=== PATIENT | female | born 1960 | race Caucasian/White ===

== ENCOUNTER 2019-12-28 14:46 | Outpatient (CLI) | payer OTHER, SELFPAY ==
--- NOTE | 2019-12-28 14:56 | XR_ITS ---
WS: [id number] CERVICAL SPINE TECHNIQUE: 3 views of the cervical spine CLINICAL INFORMATION: CERVICALGIA COMPARISON: None. FINDINGS: Mild cervical curve convex left. Straightening of the normal cervical lordosis. Mild spondylitic dodson ges. Disc space narrowing worse at C5-C6 and C6-C7. Normal dens. Normal prevertebral soft tissues. XR/XR cervical spine 3V* [id number] IMPRESSION: 1. Straightening of the normal cervical lordosis with mild spondylitic changes . 2. Disc space narrowing worse at C5-C6 and C6-C7.
--- NOTE | 2019-12-28 14:56 | XR_ITS ---
WS: [id number] LUMBAR SPINE TECHNIQUE: 3 views of the lumbar spine CLINICAL INFORMATION: LOW BACK PAIN COMPARISON: None. FINDINGS: Five [id number] lumbar vertebral bodies. Mild lumbar curve convex right. Solid retrolisthesis L1 on L2 and L2 on L3. Aortic calcification. No acute appearing compression fractures. Mild disc space narrowing L3-L4 L4-L5 and L5-S1. Mild facet arthropathy L5-S1. Aortic calcification. XR/XR lumbar spine 2-3V* [id number] IMPRESSION: 1. Minimal lumbar curve with mild spondylitic changes. 2. Mild disc space narrowing L3-L4 L4-L5 and L5-S1. 3. Slight retrolisthesis L1 on L2. 4. No acute lumbar spine findings.
== END 2019-12-28 14:47 | disposition home or self-care (01) ==
LOC: RADWPI 14:54
PROVIDERS: Family Provider Nurse Practitioner Family; PCP Nurse Practitioner Family; Visit Provider Nurse Practitioner Family
DX: M47.896 Other spondylosis, lumbar region (principal); M47.892 Other spondylosis, cervical region; M54.2 Cervicalgia; M54.5 Low back pain
CPT/HCPCS: 72040; 72100

== ENCOUNTER → 2020-01-24 08:29 | Outpatient (BNVA) | payer SELFPAY | PROVIDERS: Family Provider Nurse Practitioner Family; PCP Nurse Practitioner Family; Visit Provider Urology | DX: N30.20 Other chronic cystitis without hematuria (principal); R10.2 Pelvic and perineal pain | CPT/HCPCS: 81001 ==

== ENCOUNTER 2020-01-31 09:56 | Outpatient (CLI) | payer OTHER, SELFPAY ==
--- NOTE | 2020-01-31 10:18 | MR_ITS ---
WS: [id number] MRI LUMBAR SPINE NONCONTRAST HISTORY: ACUTE LOW BACK PAIN COMPARISON: Lumbar spine radiograph 12/28/2019. TECHNIQUE: Sagittal and axial multisequence imaging is submitted. L1 retrolisthesis by 2 mm. Mild disc space narrowing at L1-2. Otherwise mild disc desiccation without narrowing. Small amount of reactive marrow edema in the anterior endplates of L1 and L2. No fracture . Conus terminates normally at L1. L1-L2: Moderate diffuse annular disc bulging and osteophytic ridging. Central and RIGHT paracentral m oderate-sized disc protrusion with mild contact of the cord and slight narrowing. There is mild bilat eral subarticular recess and bilateral foraminal stenosis. Fluid in the facet joints bilaterally with mild widening of the facet joints. L2-L3: Mild annular disc bulging with mild bilateral foraminal stenosis. L3-L4: Mild annular disc bulging with ligamentum flavum hypertrophy and facet arthropathy. Mild bilat eral foraminal stenosis, slightly greater on the LEFT. Subarticular recesses are also slightly narrow ed. L4-L5: Mild annular disc bulging with moderate facet and ligamentum flavum arthropathy. Moderate LEFT and mild RIGHT foraminal stenosis. L5-S1: Mild bilateral foraminal stenosis. Paraspinal soft tissues are negative. MR/MR lumbar spine wo con* [id number] IMPRESSION: 1. L1 retrolisthesis by 2 mm with moderate degenerative disc disease. 2. Central and RIGHT paracentral disc protrusion at L1-2 with mild encroachmen t upon the ventral thecal sac. There is mild bilateral subarticular recess and foraminal stenosis at L1-2. 3. Mild widening of the facet joints at L1-2 with increased fluid. 4. Moderate LEFT and mild RIGHT foraminal stenosis at L4-5. 5. Mild foraminal stenosis at L2-3, L3-4 and L5-S1.
--- NOTE | 2020-01-31 10:18 | MR_ITS ---
WS: [id number] MRI CERVICAL SPINE HISTORY: PAIN NECK COMPARISON: 08/31/2009 Straightening of the normal cervical lordosis. Multilevel mild to moderate degenerative disc space na rrowing and desiccation, most significant at C5-6. There is an imaging artifact through the spinal co rd at the T2 level. Signal within the cervical cord is normal. Visualized posterior fossa is unremarkable. Craniocervical junction, C1 and C2 relationship, odontoid process and soft tissues are normal. C2-C3: Very shallow central disc protrusion without stenosis. C3-C4: Shallow central disc protrusion without stenosis. C4-C5: Mild annular disc bulging with a very shallow central protrusion. No stenosis. C5-C6: Osteophytic ridging and annular disc bulging. Disc osteophyte complexes in both foramen. Moder ate to severe bilateral foraminal stenosis, slightly greater encroachment on the RIGHT. There is also at least moderate central stenosis. C6-C7: Osteophytic ridging and diffuse disc bulging. Disc osteophyte complexes and neural foramen con tributing to moderate to severe RIGHT foraminal and moderate LEFT foraminal stenosis. Mild central st enosis. C7-T1: Normal. Paraspinal soft tissue are normal. MR/MR cervical spin wo con* [id number] IMPRESSION: 1. Moderate progression of degenerative disc disease and osteophytosis since 2 009. 2. Most significant degenerative disc disease at C5-6. 3. Moderate central stenosis with moderate to severe bilateral foraminal steno sis at C5-6, greatest on the RIGHT. Stenosis due to combination of disc and ost eophyte disease. 4. Moderate to severe RIGHT and moderate LEFT foraminal stenosis at C6-7 due t o disc osteophyte disease. Mild central stenosis.
== END 2020-01-31 09:57 | disposition home or self-care (01) ==
LOC: RADWPI 09:59
PROVIDERS: Family Provider Nurse Practitioner Family; PCP Nurse Practitioner Family; Visit Provider Nurse Practitioner Family
DX: M51.26 Other intervertebral disc displacement, lumbar region (principal); M48.061 Spinal stenosis, lumbar region without neurogenic claudication; M48.07 Spinal stenosis, lumbosacral region; M47.892 Other spondylosis, cervical region; M48.02 Spinal stenosis, cervical region; M54.2 Cervicalgia
CPT/HCPCS: 72141; 72148

== ENCOUNTER 2020-03-27 09:20 | Outpatient (CLI) | payer OTHER, SELFPAY ==
--- NOTE | 2020-03-27 09:30 | US_ITS ---
WS: [id number] ULTRASOUND PELVIS TECHNIQUE: Transabdominal and transvaginal. ULTRASOUND PELVIS TECHNIQUE: Transabdominal. CLINICAL INFORMATION: Pelvic pressure : No. COMPARISON: None. FINDINGS: Uterus Orientation: Anteverted. Size: 5.4 cm x 2.2 cm x 1.9 cm. Masses: None. Prominent pelvic varices Endometrium: Normal. Endometrium thickness: 0.1 cm. Adnexa: Ovaries not well seen Right ovary size: Not well seen Left ovary size: 1.9 cm x 0.9 cm x 1.1 cm. Left ovary volume: 1.0 ccm3 Free fluid: None. Other findings: None. US/US pelvic with transvaginal IMPRESSION: 1. Uterus and endometrium are normal in appearance. 2. No free fluid in the cul-de-sac. 3. Right ovary not well seen. No adnexal masses. 4. Normal visualized left ovary. 5. Prominent pelvic venous varices.
== END 2020-03-27 09:21 | disposition home or self-care (01) ==
LOC: RAD 09:24
PROVIDERS: Family Provider Nurse Practitioner Family; PCP Nurse Practitioner Family; Visit Provider Urology
DX: R10.2 Pelvic and perineal pain (principal)
CPT/HCPCS: 76830; 76856; 81001

== ENCOUNTER → 2020-04-17 13:26 | Outpatient (BNVA) | payer OTHER, SELFPAY | PROVIDERS: Family Provider Nurse Practitioner Family; PCP Nurse Practitioner Family; Visit Provider Nurse Practitioner Family | DX: N30.20 Other chronic cystitis without hematuria (principal); R10.2 Pelvic and perineal pain; F17.210 Nicotine dependence, cigarettes, uncomplicated | CPT/HCPCS: 81001 ==